=== PATIENT | male | born 1995 | race Caucasian/White ===

== ENCOUNTER 2016-12-29 00:52 | Emergency (ER) | payer SELFPAY ==
[~2016-12-29] VITALS: Ht 180.3 cm; Wt 61.4 kg
[2016-12-29 01:34] LABS: HEMATOCRIT 43.8 % (38.0-50.0); MCH 30.5 PG (29.0-34.0); MCHC 33.8 G/DL (30.0-36.0); MCV 90.3 FL (86-99); MEAN PLAT.VOLUME 9.7 uM^3 (9.0-12.4); PLATELET COUNT 204 K/uL (156-360); RBC DIS.WIDTH-CV 12.2 % (11.8-14.6); RBC DIS.WIDTH-SD 40.7 % (39-53); RED BLOOD COUNT 4.85 M/uL (4.00-5.50); WHITE BLOOD COUNT 8.2 K/uL (4.1-10.2)
[2016-12-29 01:45] LABS: CHLORIDE 109 mEq/L (99-109); POTASSIUM 4.1 mEq/L (3.7-5.4); SODIUM 144 mEq/L (136-147)
[2016-12-29 01:47] LABS: GLUCOSE 98 mg/dL (70-99)
[2016-12-29 01:48] LABS: ADD MEDTOX COMMENT Y; AMPHETAMINE NEGATIVE (500 ng/mL); BARBITURATES NEGATIVE (200 ng/mL); BENZODIAZEPINES NEGATIVE (150 ng/mL); COCAINE NEGATIVE (150 ng/mL); INTERNAL CONTROLS VALID? YES; METHADONE NEGATIVE (200 ng/mL); METHAMPHETAMINE NEGATIVE (500 ng/mL); OPIATES (MORPHINE) NEGATIVE (100 ng/mL); OXYCODONE NEGATIVE (100 ng/mL); PHENCYCLIDINE NEGATIVE (25 ng/mL); PROPOXYPHENE NEGATIVE (300 ng/mL); THC CANNABINOIDS PRESUMPTIVE POSITIVE (50 ng/mL); TRICYCLIC ANTIDEPRESSANTS NEGATIVE (300 ng/mL)
[2016-12-29 01:49] LABS: ANION GAP 12 MEQ/L (2-14)
[2016-12-29 01:50] LABS: SERUM ETHYL ALCOHOL 174 mg/dL
[2016-12-29 01:51] LABS: GFR ESTIMATE (CALCULATED) > 59 mL/min/
[2016-12-29 01:52] LABS: UREA NITROGEN (BUN) 14 mg/dL (9-23)
[2016-12-29 05:25] VITALS: BP 105/63
== END 2016-12-29 05:25 | disposition home or self-care (01) ==
LOC: EME 00:52
PROVIDERS: Emergency Medicine
DX: F32.9 Major depressive disorder, single episode, unspecified (principal); S60.410A Abrasion of right index finger, initial encounter; W22.8XXA Striking against or struck by other objects, initial encounter; F43.20 Adjustment disorder, unspecified; F10.10 Alcohol abuse, uncomplicated; Y90.6 Blood alcohol level of 120-199 mg/100 ml; F17.200 Nicotine dependence, unspecified, uncomplicated
CPT/HCPCS: 80048; 84999; 85027; 90837; G0480